=== PATIENT | female | born 1970 | race Caucasian/White ===

== ENCOUNTER 2020-06-26 13:21 | Emergency (ER) | payer BC, OTHER ==
[~2020-06-26] VITALS: Ht 172.7 cm; Wt 77.1 kg
[2020-06-26 15:36] LABS: Basophils # (auto) 0 10 ^3/uL (0-0.2); Basophils % (auto) 0.2 % (0.0-2.0); Eosinophils # (auto) 0 10 ^3/uL (0-0.8); Eosinophils % (auto) 0.2 % (0.0-7.0); Hematocrit 39.2 % (36.0-46.0); Hemoglobin 13.5 g/dL (12.2-16.2); Lymphocytes # (auto) 1.2 10 ^3/uL (0.4-5.4); Lymphocytes % (auto) 12.6 % (10.0-50.0); Mean Corpuscular Hgb Conc. 34.4 g/dL (32.0-36.0); Mean Corpuscular Volume 87.3 fL (80.0-100.0); Monocytes # (auto) 0.5 10 ^3/uL (0-1.3); Monocytes % (auto) 4.9 % (0.0-12.0); Neutrophils # (auto) 7.9 10 ^3/uL (1.6-8.6); Neutrophils % (auto) 82.1 % (37.0-80.0); Nucleated Red Blood Cells % 0.1 %; Platelet Count (auto) 197 10^3/uL (140-450); Red Blood Cells 4.49 10^6/uL (4.0-5.20); Red Cell Distribution Width 12.5 % (11.8-14.3); White Blood Cell 9.6 10^3/uL (4.4-10.8)
[2020-06-26 15:57] LABS: Albumin 3.9 g/dL (3.4-5.0); Calcium 8.5 mg/dL (8.5-10.1); Potassium 3.8 mmol/L (3.5-5.1)
[2020-06-26 16:01] LABS: Bilirubin, Total 0.3 mg/dL (0.2-1.0); Lactic Acid w/Reflex 2.3 mmol/L (0.4-2.0); Total Protein 7.2 g/dL (6.4-8.2)
[2020-06-26 16:21] LABS: Urine Bacteria NONE SEEN /hpf (None Seen); Urine Blood Negative /uL (Negative); Urine Specific Gravity 1.015 (1.001-1.035); Urine WBC 1 /hpf (0 - 5)
[2020-06-26 16:28] LABS: INR 0.96 (0.9-1.15); Partial Thromboplastin Time 24.2 sec (23.0-31.2)
[2020-06-26 16:41] LABS: BUN/Creatinine Ratio 24.5
[2020-06-26] MEDS ORDERED: DexAMETHasone SOD PHOS 10MG/1ML VIAL INJ IV ONE (17:15)
[2020-06-26 18:46] VITALS: BP 118/76
== END 2020-06-26 19:10 | disposition short-term general hospital (02) ==
LOC: EDBD 13:21 → ER 13:21
DX: R56.9 Unspecified convulsions (principal); D49.6 Neoplasm of unspecified behavior of brain
CPT/HCPCS: 36415; 70450; 71045; 80053; 81001; 83605; 85025; 85610; 85730; 87040; 93005; 96365; 96375; 99285; J1100; J1953; J7060

== ENCOUNTER → 2020-08-20 | Outpatient (CLI) | payer BC ==
[2020-08-20 09:24] LABS: Basophils # (auto) 0 10 ^3/uL (0-0.2); Basophils % (auto) 0.6 % (0.0-2.0); Eosinophils # (auto) 0 10 ^3/uL (0-0.8); Eosinophils % (auto) 0.6 % (0.0-7.0); Hematocrit 39.2 % (36.0-46.0); Hemoglobin 13.8 g/dL (12.2-16.2); Lymphocytes # (auto) 1.5 10 ^3/uL (0.4-5.4); Lymphocytes % (auto) 29.9 % (10.0-50.0); Mean Corpuscular Hemoglobin 30.2 pg (28.0-32.0); Mean Corpuscular Hgb Conc. 35.1 g/dL (32.0-36.0); Mean Corpuscular Volume 86.1 fL (80.0-100.0); Monocytes # (auto) 0.3 10 ^3/uL (0-1.3); Monocytes % (auto) 6.9 % (0.0-12.0); Nucleated Red Blood Cells % 0.2 %; Platelet Count (auto) 197 10^3/uL (140-450); Red Blood Cells 4.55 10^6/uL (4.0-5.20); White Blood Cell 4.9 10^3/uL (4.4-10.8)
[2020-08-20 09:33] LABS: Urine Bacteria FEW /hpf (None Seen); Urine Blood Negative /uL (Negative); Urine Specific Gravity 1.018 (1.001-1.035); Urine WBC 1 /hpf (0 - 5)
[2020-08-20 10:03] LABS: Albumin 3.9 g/dL (3.4-5.0); BUN/Creatinine Ratio 22.7; Bilirubin, Total 0.8 mg/dL (0.2-1.0); Total Protein 7.2 g/dL (6.4-8.2)
== END | disposition home or self-care (01) ==
LOC: LAB 08:02
PROVIDERS: ATTEND Family Medicine
DX: D49.6 Neoplasm of unspecified behavior of brain (principal); R56.9 Unspecified convulsions; Z83.3 Family history of diabetes mellitus; Z98.84 Bariatric surgery status
CPT/HCPCS: 36415; 80053; 80061; 81001; 82306; 82542; 82607; 83036; 84443; 85025

== ENCOUNTER → 2022-09-11 | Outpatient (CLI) | payer BC ==
[2022-09-11 16:05] LABS: BUN/Creatinine Ratio 28.1 (10.0-20.0); Calcium 9.4 mg/dL (8.5-10.1); Potassium 4.4 mmol/L (3.5-5.1)
== END | disposition home or self-care (01) ==
LOC: LAB 15:27
PROVIDERS: ATTEND Student in an Organized Health Care Education/Training Program
DX: Z01.812 Encounter for preprocedural laboratory examination (principal); M25.511 Pain in right shoulder; R20.0 Anesthesia of skin
CPT/HCPCS: 36415; 80048

== ENCOUNTER → 2022-10-28 | Outpatient (CLI) | payer BC ==
[2022-10-28 07:16] LABS: Basophils # (auto) 0 10 ^3/uL (0-0.2); Basophils % (auto) 0.8 % (0.0-2.0); Eosinophils # (auto) 0 10 ^3/uL (0-0.8); Hematocrit 40.8 % (36.0-46.0); Hemoglobin 13.9 g/dL (12.2-16.2); Lymphocytes # (auto) 1.7 10 ^3/uL (0.4-5.4); Lymphocytes % (auto) 35.8 % (10.0-50.0); Mean Corpuscular Hemoglobin 28.7 pg (28.0-32.0); Mean Corpuscular Volume 84.2 fL (80.0-100.0); Monocytes # (auto) 0.3 10 ^3/uL (0-1.3); Monocytes % (auto) 6.6 % (0.0-12.0); Neutrophils # (auto) 2.7 10 ^3/uL (1.6-8.6); Neutrophils % (auto) 55.8 % (37.0-80.0); Nucleated Red Blood Cells % 0.1 %; Red Blood Cells 4.85 10^6/uL (4.0-5.20); Red Cell Distribution Width 13.1 % (11.8-14.3); White Blood Cell 4.9 10^3/uL (4.4-10.8)
[2022-10-28 07:53] LABS: Albumin 4.1 g/dL (3.4-5.0); BUN/Creatinine Ratio 23.3 (10.0-20.0); Bilirubin, Total 0.9 mg/dL (0.2-1.0); Calcium 8.8 mg/dL (8.5-10.1); Total Protein 7.3 g/dL (6.4-8.2)
[2022-10-29 08:06] LABS: RPR Non Reactive (Non Reactive)
[2022-10-29 10:21] LABS: Hepatitis B Surface Antibody Negative (Negative)
[2022-10-29 10:51] LABS: Hepatitis A Total Antibody Negative (Negative)
== END | disposition home or self-care (01) ==
LOC: LAB 06:26
PROVIDERS: ATTEND Student in an Organized Health Care Education/Training Program
DX: Z00.00 Encounter for general adult medical examination without abnormal findings (principal); Z12.11 Encounter for screening for malignant neoplasm of colon; D49.6 Neoplasm of unspecified behavior of brain; Z83.3 Family history of diabetes mellitus
CPT/HCPCS: 36415; 80053; 80061; 85025; 86592; 86703; 86704; 86706; 86708; 86803; 87340

== ENCOUNTER 2024-04-06 11:35 | Emergency (ER) | payer BC ==
[~2024-04-06] VITALS: Ht 162.6 cm; Wt 87.0 kg
[2024-04-06 11:35] VITALS: PULSE 94; RESP 17; O2SAT 97
--- NOTE | 2024-04-06 11:52 | ED.PDOC ---
HPI (NEURO) HPI Comments HPI: Poor Historian. 53 y.o female presents to the ED via EMS for an evaluation of 3-5 minute tonic clonic seizure witnessed by co worker today at work. Per co worker, patient slid down her chair but denied any head injury or fall. Patient is unable to recall event, states she had no prior aura or symptoms leading up to seizure. At this time, patient only complains of nausea and vomiting. Patient denies any neck pain, lightheadedness, chest pain or SOB. Patient reports she's had one other seizure about a year ago, was then diagnosed with a benign meningioma and she had it surgical removed. Patient states since surgery, she has not had any seizures. Patient did see a neurologist s/p surgery. Patient is on Lamictal for bipolar disorder which she has been compliant with taking. Patient is not postictal. Patient is back to her baseline. No history of fall or trauma during the seizure event. This was witnessed seizure. Vital signs: BP: 130/71 HR: 94 Temp: 98.0 F SPO2: 97% RA RR: 17 Patient denies any allergies Past medical history: Bipolar disorder, Depression and benign meningioma diagnose s/p seizure episode Past surgical history: benign meningioma removal x 1 year ago REVIEW OF SYSTEMS: CONSTITUTIONAL: Denies acute: fever, diaphoresis, chills, HEAD: Denies acute: headache, photophobia Eyes: Denies acute: Double vision, vision loss, eye pain, eye discharge. EARS: Denies acute: tinnitus, hearing loss, ear discharge, ear pain, THROAT: Denies acute: sore throat, swelling, difficulty swallowing , pain with swallowing, change in voice. NECK: Denies acute: neck pain, neck swelling, stiff neck. HEART: Denies acute : chest pain, palpitations, LUNGS: Denies acute: SOB, wheezing, cough, hemoptysis ABDOMEN: Denies acute: abdominal pain, Nausea, Vomiting, diarrhea, melena , hematemesis, hematochezia SKIN: Denies acute: rash, redness, lesions, itchiness. EXTREMITIES: Denies acute: calf pain, numbness, tingling, weakness, denies pain in extremity. Denies acute: Low back pain. Neuro: Denies acute: focal neurological deficit, motor or sensory focal neurological deficit, confusion, change in mental status, loss of bowel or bladder function, cauda equina like symptoms. : Denies acute: dysuria, hematuria, flank pain, increase in urinary frequency. PSYCH: Denies acute: hallucination, suicidal ideation, homicidal ideation. FEMALE: Denies acute: abnormal vaginal bleeding, foul odor, unusual discharge. PHYSICAL EXAM: General: no acute distress, awake and alert. Head: normocephalic, atraumatic. Neck: supple, trachea is midline, no swelling. Throat: Normal phonation. Eyes:, no erythema, no purulent discharge, no proptosis, no icterus. Heart: regular rate, regular rhythm, no significant murmur appreciated. Lungs: no apparent respiratory distress, Able to speak in full sentences. No wheezing, no rhonchi, no crackles. No stridors Clear to auscultation bilaterally. Abdomen: non tender to palpation, non distended, soft, no guarding, no rebound, + bowel sounds. Neuro: Awake, Alert, oriented to name, self, situation, follows commands GCS=15. Speech is normal. Skin: no petechia, no purpura, no cyanosis, non-pale, not jaundice. Lower extremities: --no - Pitting edema no deformity, no focal swelling, no calf TTP. Makes eye contact. moves all four extremities. Face: no apparent facial droop. PERRLA, EOM-I No nystagmus. No nuchal rigidity, Kernig's sign, Brudzinski's sign, no meningeal signs. 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 Was a procedure done?: No Differential Diagnosis (SZ) Seizure: Syncope, Epilepsy-Break Through, Epilepsy-Status, Other (SEIZUREDDX include not limited to CVA, cerebellar ischemia/infarct, carotid stenosis, vertebral/carotid artery dissection,, vertebrobasillary insufficiency, Intracranial mass/infection/bleed, encephalopathy, elctrolyte abnormality, thyroid disease, multiple sclerosis, hypoglycemia, drug toxicity, cardiac arrhythmia, sub-theraputic anti-convulsion medications, known seizure disorder, pseudo-seizure.) X-Ray, Labs, Meds, VS Vital Signs Date Time Temp Pulse Resp B/P (MAP) Pulse Ox O2 Delivery O2 Flow Rate FiO2 04/06/24 17:52 97.9 83 18 103/46 (65) 95 97.9 04/06/24 16:51 73 18 120/58 (78) 100 04/06/24 14:54 68 17 112/54 (73) 100 04/06/24 13:00 98.0 72 17 102/39 (60) 100 98.0 04/06/24 11:58 87 04/06/24 11:41 97.0 102 18 137/78 (97) 100 04/06/24 11:35 98.0 94 17 130/71 (90) 96 98.0 04/06/24 11:35 94 17 97 Room Air* 0 21 Lab Test 04/06/24 16:31 04/06/24 15:17 04/06/24 13:31 04/06/24 12:16 Range/Units Urine Color Light-yellow Yellow Urine Clarity Turbid H Clear Urine pH 5.5 5.0-9.0 Urine Specific [place] 1.012 1.001-1.035 Urine Protein Negative Negative Urine Ketones Trace Negative Urine Blood Negative Negative /uL Urine Nitrite Negative Negative Urine Bilirubin Negative Negative Urine Urobilinogen Normal Negative mg/dL Urine Leukocyte Esterase Negative Negative /uL Urine RBC None seen 0 - 4 /hpf Urine WBC None seen 0 - 5 /hpf Urine Squamous Epithelial Cells Few <5 /hpf Urine Bacteria None seen None Seen /hpf Urine Glucose Normal Normal mg/dL Urine Opiates Screen Neg NEGATIVE Urine Fentanyl Screen Neg NEGATIVE Urine Barbiturates Screen Neg NEGATIVE Urine Phencyclidine Screen Neg NEGATIVE Urine Amphetamines Screen Neg NEGATIVE Urine Benzodiazepines Screen Neg NEGATIVE Urine Cocaine Screen Neg NEGATIVE Urine Cannabinoids Screen Neg NEGATIVE Lactic Acid Level 1.6 6.2 *H 0.4-2.0 mmol/L Troponin I High Sensitivity 12 4 < 3 L </=34 ng/L White Blood Count 9.2 4.4-10.8 10^3/uL Red Blood Count 5.05 4.0-5.20 10^6/uL Hemoglobin 15.0 12.2-16.2 g/dL Hematocrit 44.6 36.0-46.0 % Mean Corpuscular Volume 88.3 80.0-100.0 fL Mean Corpuscular Hemoglobin 29.7 28.0-32.0 pg Mean Corpuscular Hemoglobin Concent 33.6 32.0-36.0 g/dL Red Cell Distribution Width 13.4 11.8-14.3 % Platelet Count 179 140-450 10^3/uL Mean Platelet Volume 8.6 6.9-10.8 fL Neutrophils (%) (Auto) 70.1 37.0-80.0 % Lymphocytes (%) (Auto) 22.5 10.0-50.0 % Monocytes (%) (Auto) 6.7 0.0-12.0 % Eosinophils (%) (Auto) 0.3 0.0-7.0 % Basophils (%) (Auto) 0.4 0.0-2.0 % Neutrophils # (Auto) 6.5 1.6-8.6 10 ^3/uL Lymphocytes # (Auto) 2.1 0.4-5.4 10 ^3/uL Monocytes # (Auto) 0.6 0-1.3 10 ^3/uL Eosinophils # (Auto) 0 0-0.8 10 ^3/uL Basophils # (Auto) 0 0-0.2 10 ^3/uL Nucleated Red Blood Cells 0.1 % Sodium Level 138 136-145 mmol/L Potassium Level 3.5 3.5-5.1 mmol/L Chloride Level 105 98-107 mmol/L Carbon Dioxide Level 21 20-31 mmol/L Anion Gap 12 5-15 Blood Urea Nitrogen 11 9-23 mg/dL Creatinine 0.82 0.550-1.02 mg/dL Glomerular Filtration Rate Calc 87 >90 mL/min BUN/Creatinine Ratio 13.4 10.0-20.0 Serum Glucose 108 H 74-106 mg/dL Calcium Level 10.1 8.7-10.4 mg/dL Magnesium Level 2.4 1.6-2.6 mg/dL Total Bilirubin 0.6 0.2-1.0 mg/dL Aspartate Amino Transferase (AST) 17 13-40 U/L Alanine Aminotransferase (ALT) 31 7-40 U/L Alkaline Phosphatase 74 46-116 U/L Total Protein 7.5 5.7-8.2 g/dL Albumin 4.8 3.2-4.8 g/dL Current Medications Medications (Trade) Dose Ordered Sig/Kirill Route Start Time Stop Time Status Last Admin Sodium Chloride 1,000 ml @ 1,000 mls/hr Q1H ONCE IV 04/06/24 13:15 04/06/24 14:14 DC 04/06/24 13:19 Dexamethasone Sodium Phosphate (Decadron Injection) 20 mg ONCE ONCE IV 04/06/24 13:45 04/06/24 13:48 DC 04/06/24 14:00 Levetiracetam 100 ml @ 400 mls/hr ONCE ONCE IV 04/06/24 13:45 04/06/24 13:59 DC 04/06/24 14:00 Acetaminophen/ Hydrocodone Bitart ([place] 5/325MG Tab) 1 tab ONCE ONCE PO 04/06/24 14:00 04/06/24 14:01 DC 04/06/24 14:00 Ondansetron HCl (Zofran) 8 mg ONCE ONCE IV 04/06/24 14:15 04/06/24 14:16 DC 04/06/24 14:21 [place] [address] Ph: [phone] DIAGNOSTIC IMAGING Diagnostic Imaging Report : [id number] Signed PATIENT: YENI ADEN ACCT: [id number] UNIT: [id number] : 1970 LOC: ER ROOM / BED: / AGE / SEX: 53 / F ADM STATUS: REG ER SERVICE 1150 ORDERING PHYSICIAN: RENATA DEAN DO PROCEDURE(s): CXRP - CHEST PORTABLE REASON: ramón ORDER NUMBER(s): [id number], ACCESSION NUMBER(s): [id number] EXAM: XY CHEST PORTABLE CLINICAL HISTORY: sz TECHNIQUE: Single AP view of the chest WID: COMPARISON: CHEST XRAY 1 VIEW on DOS: 06/26/20 FINDINGS: Lines and tubes: None Chest: The heart size and pulmonary vasculature is within normal limits. No pleural effusion, pneumothorax, or consolidation. The osseous structures are grossly intact. Mild multilevel thoracic spondylosis. IMPRESSION: No acute cardiopulmonary abnormality. ATED BY: MADHU GORDON MD DICTATED DATE/TIME: 04/06/24 1251 SIGNED BY: MADHU GORDON MD SIGNED DATE/TIME: 04/06/24 1251 CC: [place] [id number] Ph: [phone] DIAGNOSTIC IMAGING Diagnostic Imaging Report : [id number] Signed PATIENT: YENI ADEN ACCT: [id number] UNIT: [id number] : 1970 LOC: ER ROOM / BED: / AGE / SEX: 53 / F ADM STATUS: REG ER SERVICE 1150 ORDERING PHYSICIAN: RENATA DEAN DO PROCEDURE(s): HWOCT - HEAD WITHOUT CONTRAST REASON: ramón ORDER NUMBER(s): [id number], ACCESSION NUMBER(s): [id number] EXAM: CT HEAD WITHOUT CONTRAST HISTORY: sz COMPARISON: HEAD WITHOUT CONTRAST on DOS: 06/26/20 TECHNIQUE: [Technique] Axial images of the head were obtained and reformatted in coronal and sagittal planes. All CT scans at this medical facility are performed using dose modulation techniques as appropriate to a performed exam including the following: Automated exposure control was utilized; adjustment of the MA and/or KV according to patient size; and use of iterative reconstruction technique. CT Dose: CTDI volume is 61.2 mGy. Dose-length product is 980.93 mGy*cm FINDINGS: There are postsurgical changes related to left anterior frontal craniotomy with cranioplasty. There is moderate amount of edema in the underlying left frontal lobe which appears expanded and extends into the craniectomy defect. There is no evidence of midline shift. There is no evidence of acute hemorrhage. There is no hydrocephalus or significant extra-axial fluid collection. The visualized paranasal sinuses and mastoid air cells are clear. The calvarium otherwise appears intact. IMPRESSION: 1. Postsurgical changes related to left frontal craniectomy with cranioplasty. There is moderate amount of edema in the underlying left frontal lobe which appears expanded and extends into the craniectomy defect. Further evaluation with MRI brain with contrast is recommended to evaluate for underlying tumor. HS:Y ATED BY: DWAIN HOOVER MD DICTATED DATE/TIME: 04/06/24 1304 SIGNED BY: DWAIN HOOVER MD SIGNED DATE/TIME: 04/06/24 1304 CC: Time of 1ST Reevaluation: 11:45 Reevaluation 1ST: Unchanged Time of 2ND Reevaluation: 15:00 (The case was discussed with the neurology team (HPI, physical exam, labs and diagnostic tests that were available at the time of disposition, ED course, treatment plan) on the phone. They recommended to transfer the patient to higher level of care given his CT scan findings. Dr Chan. ) Time of 3RD Reevaluation: 15:20 (The case was discussed with the [facility] ER team for transfer to higher level of care for neurosurgical evaluation (HPI, physical exam, labs and diagnostic tests that were available at the time of disposition, ED course, treatment plan) on the phone. They agreed accept the patient to their ER facility for further evaluation and treatment. Accepting physician is Dr. Iyer. ) Patient Education/Counseling: Diagnosis, Treatment Family Education/Counseling: No Family Present Comments Patient presented with the above HPI.---seizure---workup was initiated. patient was found with the above mentioned diagnosis. Patient was given: Decadron, Keppra, Zofran, hydrocodone Patient ED course and VS have been stabilized. Patient has been reassessed in the ED and remained in a stable condition. Pertinent incidental findings were discussed with the patient and/or family. Patient/family voices understanding and is agreeable with plan. Patient has been observed in the ED adequate length of time to insure improvement/stability. Neurology was consulted in our facility. patient was higher level of care at [facility] for neurosurgical consultation/evaluation. All the reports of any imaging studies that were ordered by myself were reviewed by myself. Departure 1 Departure Time of Disposition: 15:00 Impression: Primary Impression: Seizure Additional Impressions: Abnormal finding on CT scan Cerebral edema Disposition: 02 SHORT TERM HOSPITAL Condition: Guarded Discharged With: Self Critical Care Note Critical Care Time?: Yes (55 min-critical care time only) I personally scribed for RENATA DEAN DO ([email or web address]) on 04/06/24 at 11:52. E lectronically submitted by Alyssa Smith ([facility]). I personally scribed for RENATA DEAN DO ([email or web address]) on 04/06/24 at 11:53. Elec tronically submitted by Alyssa Smith ([facility]). I personally scribed for RENATA DEAN DO ([email or web address]) on 04/06/24 at 13:40. Electro nically submitted by Alyssa Smith ([facility]). RENATA DEAN DO Apr 06, 2024 11:52
[2024-04-06 12:33] LABS: Basophils # (auto) 0 10 ^3/uL (0-0.2); Basophils % (auto) 0.4 % (0.0-2.0); Eosinophils # (auto) 0 10 ^3/uL (0-0.8); Eosinophils % (auto) 0.3 % (0.0-7.0); Hematocrit 44.6 % (36.0-46.0); Lymphocytes # (auto) 2.1 10 ^3/uL (0.4-5.4); Lymphocytes % (auto) 22.5 % (10.0-50.0); Mean Corpuscular Hemoglobin 29.7 pg (28.0-32.0); Mean Corpuscular Hgb Conc. 33.6 g/dL (32.0-36.0); Mean Corpuscular Volume 88.3 fL (80.0-100.0); Monocytes # (auto) 0.6 10 ^3/uL (0-1.3); Monocytes % (auto) 6.7 % (0.0-12.0); Neutrophils # (auto) 6.5 10 ^3/uL (1.6-8.6); Neutrophils % (auto) 70.1 % (37.0-80.0); Nucleated Red Blood Cells % 0.1 %; Platelet Count (auto) 179 10^3/uL (140-450); Red Blood Cells 5.05 10^6/uL (4.0-5.20); Red Cell Distribution Width 13.4 % (11.8-14.3); White Blood Cell 9.2 10^3/uL (4.4-10.8)
--- NOTE | 2024-04-06 12:54 | DVH ---
EXAM: XY CHEST PORTABLE CLINICAL HISTORY: sz TECHNIQUE: Single AP view of the chest WID: COMPARISON: CHEST XRAY 1 VIEW on DOS: 06/26/20 FINDINGS: Lines and tubes: None Chest: The heart size and pulmonary vasculature is within normal limits. No pleural effusion, pneumothorax, or consolidation. The osseous structures are grossly intact. Mild multilevel thoracic spondylosis. IMPRESSION: No acute cardiopulmonary abnormality.
[2024-04-06 12:56] LABS: Alanine Aminotransferase 31 U/L (7-40); Albumin 4.8 g/dL (3.2-4.8); Alkaline Phosphatase 74 U/L (46-116); Anion Gap 12 (5-15); Aspartate Aminotransferase 17 U/L (13-40); BUN/Creatinine Ratio 13.4 (10.0-20.0); Blood Urea Nitrogen 11 mg/dL (9-23); Calcium 10.1 mg/dL (8.7-10.4); Carbon Dioxide 21 mmol/L (20-31); Chloride 105 mmol/L (98-107); Glucose 108 mg/dL (74-106); Magnesium 2.4 mg/dL (1.6-2.6); Potassium 3.5 mmol/L (3.5-5.1); Sodium 138 mmol/L (136-145)
[2024-04-06 12:57] LABS: Bilirubin, Total 0.6 mg/dL (0.2-1.0); Total Protein 7.5 g/dL (5.7-8.2)
[2024-04-06 13:03] LABS: Lactic Acid w/Reflex 6.2 mmol/L (0.4-2.0)
--- NOTE | 2024-04-06 13:06 | DVH ---
EXAM: CT HEAD WITHOUT CONTRAST HISTORY: sz COMPARISON: HEAD WITHOUT CONTRAST on DOS: 06/26/20 TECHNIQUE: [Technique] Axial images of the head were obtained and reformatted in coronal and sagittal planes. All CT scans at this medical facility are performed using dose modulation techniques as appropriate t o a performed exam including the following: Automated exposure control was utilized; adjustment of th e MA and/or KV according to patient size; and use of iterative reconstruction technique. CT Dose: CTDI volume is 61.2 mGy. Dose-length product is 980.93 mGy*cm FINDINGS: There are postsurgical changes related to left anterior frontal craniotomy with cranioplasty. There i s moderate amount of edema in the underlying left frontal lobe which appears expanded and extends int o the craniectomy defect. There is no evidence of midline shift. There is no evidence of acute hemorr maci. There is no hydrocephalus or significant extra-axial fluid collection. The visualized paranasal sinuses and mastoid air cells are clear. The calvarium otherwise appears int act. IMPRESSION: 1. Postsurgical changes related to left frontal craniectomy with cranioplasty. There is moderate balbina unt of edema in the underlying left frontal lobe which appears expanded and extends into the craniect leonela defect. Further evaluation with MRI brain with contrast is recommended to evaluate for underlying tumor. HS:Y
[2024-04-06] MEDS: SODIUM CHLORIDE 0.9% 1,000 ML IV ONE (13:19)
[2024-04-06] MEDS: levETIRAcetam 1000 mg/100ml 100 ML IV ONE (14:00)
[2024-04-06] MEDS: HYDROcodone-ACET 5/325MG TAB PO ONE (14:00)
[2024-04-06] MEDS: DexAMETHasone SOD PHOS 10MG/1ML VIAL INJ IV ONE (14:00)
[2024-04-06] MEDS: ONDANSETRON HCL 4 MG/2 ML VIAL IV ONE (14:21)
[2024-04-06 16:56] LABS: Urine Bacteria None Seen /hpf (None Seen); Urine WBC None Seen /hpf (0 - 5)
[2024-04-06 17:17] LABS: Urine Blood Negative /uL (Negative); Urine Clarity Turbid (Clear); Urine Color Light-Yellow (Yellow); Urine Protein, UAD Negative (Negative); Urine Specific Gravity 1.012 (1.001-1.035); Urine Urobilinogen Normal (Negative); Urine pH 5.5 (5.0-9.0)
[2024-04-06 17:32] LABS: Amphetamine Screen, Urine Neg (NEGATIVE); Barbiturate Scree,Urine Neg (NEGATIVE); Benzodiazephine Screen, Urine Neg (NEGATIVE); Cannabinoid Screen, Urine Neg (NEGATIVE); Cocaine Screen, Urine Neg (NEGATIVE); Opiate Scree,Urine Neg (NEGATIVE); Phencyclidine Screen, Urine Neg (NEGATIVE)
[2024-04-06 17:52] VITALS: BP 103/46; PULSE 83; RESP 18; TEMP 97.9; O2SAT 95
--- NOTE | 2024-04-06 19:20 | ECG ---
[facility] Test Date: 2024-04-06 Test Time: 11:58:31 Pat Name: YENI ADEN Department: ED Room: Gender: F Building Certifier: ELISEO : 1970 Requested By: RENATA DEAN Order Number: [id number] Reading MD: Measurements Intervals [place] Rate: 87 P: 60 OK: 169 QRS: 39 QRSD: 103 T: 18 QT: 390 QTc: 470 Interpretive Statements Sinus rhythm Probable left atrial enlargement RSR' in V1 or V2, right VCD or RVH Inferior infarct, old Please click the below link to view image of tracing.
== END 2024-04-06 18:08 | disposition short-term general hospital (02) ==
LOC: EDBD 11:35 → ER 11:40
DX: G93.6 Cerebral edema (principal); R56.9 Unspecified convulsions; R93.89 Abnormal findings on diagnostic imaging of other specified body structures; F31.9 Bipolar disorder, unspecified; Z98.890 Other specified postprocedural states; Z79.899 Other long term (current) drug therapy
CPT/HCPCS: 36415; 70450; 71045; 80053; 80307; 81001; 83605; 83735; 84484; 85025; 93005; 96361; 96365; 96375; 99291; J1100; J1953; J2405; J7030